=== PATIENT | female | born 1960 | race Caucasian/White ===

== ENCOUNTER 2018-04-15 10:03 | Emergency (ER) | payer BC ==
[2018-04-15] MEDS ORDERED: HYDROmorphone INJ* 2 MG/ML CARPUJECT SYRINGE IV SLOW PU ONE (10:27)
[2018-04-15] MEDS ORDERED: PROCHLORPERAZINE INJ 5 MG/ML 2 ML VIAL IV PRN (10:27)
[2018-04-15] MEDS ORDERED: NS 0.9% 1000 ML* 1,000 ML IV ONE (10:27)
[2018-04-15 11:10] LABS: ABS Basophils 0 10^3/ul (0-0.2); ABS Eosinophils 0 10^3/ul (0-0.6); ABS Lymphocytes 1.1 10^3/ul (1.0-4.8); ABS Monocytes 0.4 10^3/ul (0-0.8); ABS Neutrophils 8.4 10^3/ul (1.5-7.7); ABS Nucleated RBC 0 10^3/ul; Eosinophil % 0.3 % (0-6); Hematocrit 41 % (35-47); Hemoglobin 13.8 g/dl (12.0-16.0); Lymphocyte % 11.1 % (25-47); Mean Corpuscular HGB Conc 34 g/dl (31-36); Mean Corpuscular Hemoglobin 30 pg (27-31); Mean Corpuscular Volume 88 fL (80-97); Mean Platelet Volume 7.5 um3 (7.4-10.4); Nucleated Red Blood Cells % 0; Platelet Count 278 10^3/ul (150-450); Red Blood Count 4.68 10^6/ul (4.00-5.40); Red Cell Distribution Width 13 % (10.5-15); White Blood Count 9.9 10^3/ul (3.5-10.8)
[2018-04-15 11:29] LABS: EGFR Non-African American 60.6 (>60)
--- NOTE | 2018-04-15 11:50 | RAD ---
INDICATION: Left flank pain COMPARISON: None TECHNIQUE: Noncontrast axial source images were acquired from the level hemidiaphragms to the symphysis pubis as part of CT imaging for renal stone. Lung bases: The lung bases are clear. Liver: The liver is normal in size. Noncontrast imaging shows no evidence of a hepatic mass or ductal dilatation. Gallbladder: Cholecystectomy. Spleen: The spleen is normal in size. The noncontrast CT appearance is normal. Pancreas: Noncontrast imaging shows no pancreatic mass or ductal dilitation. Adrenal glands: No masses are identified. Kidneys/Bladder: There is an incompletely characterized 1.7 cm hypodensity in the lower pole of the left kidney perhaps with some associated tiny punctate calcification. This is likely a cyst or perhaps a trapped calyx. Suggest nonemergent ultrasound evaluation. The right kidney and ureter are otherwise normal. There is left-sided hydronephrosis and hydroureter a 3 mm UVJ calculus producing mild to moderate obstruction. There is left-sided perinephric stranding. There is additional, nonobstructing, 2 mm lower pole left renal calculus. There are no bladder calculi. Adenopathy: There is no evidence of intraperitoneal or retroperitoneal adenopathy. Evaluation is limited without oral contrast. Fluid collections: There are no free or localized fluid collections. Vessels: The aorta and iliac vessels are normal in caliber. There are no significant atherosclerotic changes. The IVC appears normal Pelvic organs: The uterus appears normal. There is no evidence of adnexal mass GI tract: Evaluation of the bowel is limited without oral contrast. The stomach, small bowel, and lower GI tract appear grossly normal. There are no obstructive findings. The appendix is visualized and appears normal. Soft tissues: No soft tissue abnormalities of the extraperitoneal abdomen or pelvis are identified. Osseous structures: There are no acute osseous findings. IMPRESSION: 1. 3 mm left UVJ calculus with mild to moderate obstructive findings. There is at least one, additional, tiny nonobstructive calculi on the left and there may be a tiny calculus on the right. 2. Incompletely characterized right renal cyst or trapped calyx and possible calcification. Suggest nonemergent follow-up ultrasonography.
[2018-04-15 12:13] LABS: Urine Appearance Clear; Urine Blood Negative (Negative); Urine Color Yellow; Urine Ketones 1+ (Negative); Urine Protein Negative (Negative); Urine Specific Gravity 1.014 (1.010-1.030); Urine Urobilinogen Negative (Negative)
[2018-04-15 14:12] VITALS: BP 170/92
--- NOTE | 2018-04-15 14:35 | ED ---
Luis Fernando Abebe Angela, scribed for Mick Mcclain MD on 04/15/18 at 1024 . Abdominal Pain/Female - HPI Summary HPI Summary: This pt is a 57 y/o female presenting to [facility] c/o left lower abdominal pain since this morning. Pt reports that for the past few days she has not fell well and has had diarrhea. Today pt states she began to have abdominal pain, described as non radiating. Her abd pain is aggravated with palpation. Pt additionally reports nausea and 2 episodes of emesis, described as bile and yellow. She did urinate this morning without any problems. Pt also had a bowel movement this morning, described as normal. Denies urinary symptoms, back pain, fever. NKDA. - History of Current Complaint Chief Complaint: EDAbdPain Stated Complaint: ABD PAIN,N/V Time Seen by Provider: 04/15/18 10:16 Hx Obtained From: Patient Onset/Duration: Lasting Hours, Still Present Timing: Hours Severity Currently: Severe Pain Intensity: 8 Pain Scale Used: 0-10 Numeric Location: Discrete At: LLQ Radiates: No Aggravating Factor(s): Other: - palpation Alleviating Factor(s): Nothing Associated Signs and Symptoms: Positive: Nausea, Vomiting, Diarrhea. Negative: Fever, Back Pain, Urinary Symptoms Allergies/Adverse Reactions: Allergies Allergy/AdvReac Type Severity Reaction Status Date / Time No Known Allergies Allergy Verified 04/15/18 10:13 Home Medications: Home Medications Montelukast Sodium TAB* [Singulair TAB*] 10 mg PO QPM 04/15/18 [History Confirmed 04/15/18] Rosuvastatin (NF) [Crestor (NF)] 10 mg PO QPM 04/15/18 [History Confirmed ] PMH/Surg Hx/FS Hx/Imm Hx Endocrine/Hematology History: Denies: Hx Diabetes Cardiovascular History: Denies: Hx Hypertension Infectious Disease History: No Infectious Disease History: Denies: Traveled Outside the [place] in Last 30 Days - Family History Known Family History: Positive: Hypertension - Father Family History: Father: prostate CA. Mother: breast CA - Social History Alcohol Use: None Substance Use Type: Reports: None Smoking Status (MU): Never Smoked Tobacco Review of Systems Negative: Fever, Chills Eyes: Negative ENT: Negative Cardiovascular: Negative Positive: Abdominal Pain, Vomiting, Diarrhea, Nausea Genitourinary: Negative Positive: no symptoms reported Negative: Other - back pain All Other Systems Reviewed And Are Negative: Yes Physical Exam - Summary Physical Exam Summary: Appearance: The patient is well-nourished in moderate acute distress. Skin: The skin is warm and skin color reflects adequate perfusion. Pt is diaphoretic. HEENT: The head is normocephalic and atraumatic. The pupils are equal and reactive. The conjunctivae are clear and without drainage. Nares are patent and without drainage. Mouth reveals moist mucous membranes and the throat is without erythema and exudate. The external ears are intact. The ear canals are patent and without drainage. The tympanic membranes are intact. Neck: the neck is supple with full range of motion and non-tender. There are no carotid bruits. There is no neck vein distension. Respiratory: Chest is non-tender. Lungs are clear to auscultation and breath sounds are symmetrical and equal. Cardiovascular: Heart is regular rate and rhythm. There is no murmur or rub auscultated. There is no peripheral edema and pulses are symmetrical and equal. Abdomen: The abdomen is soft. Pt is tender in the left lower quadrant. There are normal bowel sounds heard in all four quadrants and there is no organomegaly palpated. Musculoskeletal: There is no back tenderness noted. Extremities are non-tender with full range of motion. There is good capillary refill. There is no peripheral edema or calf tenderness elicited. Neurological: Patient is alert and oriented to person, place and time. Psychiatric: The patient has an appropriate affect and does not exhibit any anxiety or depression. Triage Information Reviewed: Yes Vital Signs On Initial Exam: Initial Vitals Temp Pulse Resp BP Pulse Ox 97.5 F 66 24 00/00 100 04/15/18 10:06 04/15/18 10:06 04/15/18 10:06 04/15/18 10:06 04/15/18 10:06 Vital Signs Reviewed: Yes Diagnostics - Vital Signs Vital Signs Temp Pulse Resp BP Pulse Ox 04/15/18 10:17 67 25 169/90 100 04/15/18 10:06 97.5 F 66 24 00/00 100 - Laboratory Lab Results: Lab Results 04/15/18 04/15/18 04/15/18 Range/Units 10:53 10:53 10:53 WBC 9.9 (3.5-10.8) 10^3/ul RBC 4.68 (4.00-5.40) 10^6/ul Hgb 13.8 (12.0-16.0) g/dl Hct 41 (35-47) % MCV 88 (80-97) fL MCH 30 (27-31) pg MCHC 34 (31-36) g/dl RDW 13 (10.5-15) % Plt Count 278 (150-450) 10^3/ul MPV 7.5 (7.4-10.4) um3 Neut % (Auto) 84.4 H (38-83) % Lymph % (Auto) 11.1 L (25-47) % Frederick % (Auto) 3.7 (0-7) % Eos % (Auto) 0.3 (0-6) % Baso % (Auto) 0.5 (0-2) % Absolute Neuts (auto) 8.4 H (1.5-7.7) 10^3/ul Absolute Lymphs (auto) 1.1 (1.0-4.8) 10^3/ul Absolute Monos (auto) 0.4 (0-0.8) 10^3/ul Absolute Eos (auto) 0 (0-0.6) 10^3/ul Absolute Basos (auto) 0 (0-0.2) 10^3/ul Absolute Nucleated RBC 0 10^3/ul Nucleated RBC % 0 Sodium 139 (135-145) mmol/L Potassium 3.4 L (3.5-5.0) mmol/L Chloride 106 (101-111) mmol/L Carbon Dioxide 20 L (22-32) mmol/L Anion Gap 13 H (2-11) mmol/L BUN 14 (6-24) mg/dL Creatinine 0.95 (0.51-0.95) mg/dL Est GFR ( Amer) 73.4 (>60) Est GFR (Non-Af Amer) 60.6 (>60) BUN/Creatinine Ratio 14.7 (8-20) Glucose 136 H (70-100) mg/dL Lactic Acid 2.3 H* (0.5-2.0) mmol/L Calcium 9.2 (8.6-10.3) mg/dL Total Bilirubin 0.60 (0.2-1.0) mg/dL AST 17 (13-39) U/L ALT 21 (7-52) U/L Alkaline Phosphatase 111 H (34-104) U/L C-Reactive Protein 4.21 (<8.01) mg/L Total Protein 7.3 (6.4-8.9) g/dL Albumin 4.1 (3.2-5.2) g/dL Globulin 3.2 (2-4) g/dL Albumin/Globulin Ratio 1.3 (1-3) Lipase 79 (11.0-82.0) U/L Urine Color Urine Appearance Urine pH (5-9) Ur Specific Blanding (1.010-1.030) Urine Protein (Negative) Urine Ketones (Negative) Urine Blood (Negative) Urine Nitrate (Negative) Urine Bilirubin (Negative) Urine Urobilinogen (Negative) Ur Leukocyte Esterase (Negative) Urine Glucose (Negative) 04/15/18 Range/Units 11:59 WBC (3.5-10.8) 10^3/ul RBC (4.00-5.40) 10^6/ul Hgb (12.0-16.0) g/dl Hct (35-47) % MCV (80-97) fL MCH (27-31) pg MCHC (31-36) g/dl RDW (10.5-15) % Plt Count (150-450) 10^3/ul MPV (7.4-10.4) um3 Neut % (Auto) (38-83) % Lymph % (Auto) (25-47) % Frederick % (Auto) (0-7) % Eos % (Auto) (0-6) % Baso % (Auto) (0-2) % Absolute Neuts (auto) (1.5-7.7) 10^3/ul Absolute Lymphs (auto) (1.0-4.8) 10^3/ul Absolute Monos (auto) (0-0.8) 10^3/ul Absolute Eos (auto) (0-0.6) 10^3/ul Absolute Basos (auto) (0-0.2) 10^3/ul Absolute Nucleated RBC 10^3/ul Nucleated RBC % Sodium (135-145) mmol/L Potassium (3.5-5.0) mmol/L Chloride (101-111) mmol/L Carbon Dioxide (22-32) mmol/L Anion Gap (2-11) mmol/L BUN (6-24) mg/dL Creatinine (0.51-0.95) mg/dL Est GFR ( Amer) (>60) Est GFR (Non-Af Amer) (>60) BUN/Creatinine Ratio (8-20) Glucose (70-100) mg/dL Lactic Acid (0.5-2.0) mmol/L Calcium (8.6-10.3) mg/dL Total Bilirubin (0.2-1.0) mg/dL AST (13-39) U/L ALT (7-52) U/L Alkaline Phosphatase (34-104) U/L C-Reactive Protein (<8.01) mg/L Total Protein (6.4-8.9) g/dL Albumin (3.2-5.2) g/dL Globulin (2-4) g/dL Albumin/Globulin Ratio (1-3) Lipase (11.0-82.0) U/L Urine Color Yellow Urine Appearance Clear Urine pH 7.0 (5-9) Ur Specific Blanding 1.014 (1.010-1.030) Urine Protein Negative (Negative) Urine Ketones 1+ A (Negative) Urine Blood Negative (Negative) Urine Nitrate Negative (Negative) Urine Bilirubin Negative (Negative) Urine Urobilinogen Negative (Negative) Ur Leukocyte Esterase Negative (Negative) Urine Glucose Negative (Negative) Result Diagrams: 04/15/18 10:53 04/15/18 10:53 Lab Statement: Any lab studies that have been ordered have been reviewed, and results considered in the medical decision making process. - CT Abdomen/Pelvis CT CT Interpretation: Positive (See Comments) - IMPRESSION: 1. 3 mm left UVJ calculus with mild to moderate obstructive findings. There is at least one, additional, tiny nonobstructive calculi on the left and there may be a tiny calculus on the right. 2. Incompletely characterized right renal cyst or trapped calyx and possible calcification. Suggest nonemergent follow-up ultrasonography. Dr. Mcclain has reviewed this radiology report. CT Interpretation Completed By: Radiologist - EKG 10:06 Cardiac Rate: NL - at 61 bpm EKG Rhythm: Sinus Rhythm Abdominal Pain Fem Course/Dx - Course Course Of Treatment: Ms. Mcintyre presented primarily complaining of left lower quadrant pain that came on fairly suddenly this morning. She has had some mild discomfort to mornings in a row but nothing on this scale. She was tender in the left lower quadrant and her vitals were normal. She was given pain medication and nausea medication and IV fluids while labs were obtained and a noncontrasted CT. After the medication she felt transiently dizzy but this resolved. CT revealed a 3 mm left UVJ stone with some hydronephrosis. She was kept on the monitor while she was here and noted to have some dropped beats. Most of the time this looks like a Wenkebachs but occasionally it looks more like a Mobitz II. She is asymptomatic with it. I reviewed the strips and EKG with Dr. Del Rosario and he believes that it is a Wenkebach. We will have her follow up with cardiology as she is stable. And I will treat her for her kidney stone. She was improved at discharge and stable - Diagnoses Provider Diagnoses: Kidney stone, Wenckebach Discharge - Sign-Out/Discharge Documenting (check all that apply): Discharge/Admit/Transfer - Discharge - Discharge Plan Condition: Stable Disposition: HOME Prescriptions: HYDROcodone/ACETAMIN 5-325 MG* [Lafayette 5-325 TAB*] 1 tab PO Q6H PRN #20 tab MDD 4 PRN Reason: Pain Tamsulosin CAP* [Flomax CAP*] 0.4 mg PO DAILY #7 cap Patient Education Materials: Kidney Stones (ED), Heart Block (ED) Referrals: Josue Shaikh MD [Primary Care Provider] - Additional Instructions: Recommend ibuprofen for the pain. Please follow up with your primary care provider in 2-3 days. RETURN TO THE ED FOR ANY WORSENING SYMPTOMS. - Billing Disposition and Condition Condition: STABLE Disposition: Home The documentation as recorded by the Luis Fernando harrison Angela accurately reflects the service I personally performed and the decisions made by me, Mick Mcclain MD.
== END 2018-04-15 14:09 | disposition home or self-care (01) ==
LOC: ED 10:03
DX: N13.2 Hydronephrosis with renal and ureteral calculous obstruction (principal); I44.1 Atrioventricular block, second degree
CPT/HCPCS: 36415; 74176; 80053; 81003; 83605; 83690; 85025; 86140; 87476; 87798; 93005; 96361; 96374; 96375; 99283; J0780; J1170

== ENCOUNTER 2018-07-01 06:04 | Day surgery (SDC) | payer BC ==
[~2018-07-01 06:04] MED LIST: Acetaminophen TAB* 325 MG PO ONE; Buffered Lidocaine 0.9% SYRIN* 5 ML/SYR SYRINGE INTRADERM ONE
[2018-07-01] MEDS ORDERED: Acetaminophen TAB* 325 MG ONE (06:09)
[2018-07-01] MEDS ORDERED: fentaNYL* 50 MCG/ML 2 ML VIAL (100 MCG VIAL) ONE (07:12)
[2018-07-01] MEDS ORDERED: Midazolam* 1 MG/ML 2 ML VIAL (2 MG) ONE (07:17)
[2018-07-01] MEDS ORDERED: Ondansetron INJ* 2 MG/ML VIAL ONE (08:02)
[2018-07-01] MEDS ORDERED: Dexamethasone IV* 4 MG/ML 1 ML (4 MG) ONE (08:02)
[2018-07-01] MEDS ORDERED: Propofol* 10 MG/ML 20 ML BTL IV PUSH ONE (08:02)
[2018-07-01] MEDS ORDERED: Famotidine IV* 10 MG/ML 2 ML (20 mg) ONE (08:02)
[2018-07-01] MEDS ORDERED: HYDROcodone/ACETAMIN 5-325 MG* 1 TAB PO PRN ×2 (08:17)
[2018-07-01] MEDS ORDERED: Naloxone* 0.4 MG/ML 1 ML VIAL IV PRN (08:17)
[2018-07-01] MEDS ORDERED: Nalbuphine* 10 MG/ML 1 ML VIAL IV PRN (08:17)
[2018-07-01] MEDS ORDERED: DiMENhydriNATE IV* 50 MG/ML VIAL IV PUSH PRN (08:17)
[2018-07-01] MEDS ORDERED: Ondansetron INJ* 2 MG/ML VIAL IV PRN (08:17)
[2018-07-01] MEDS ORDERED: diPHENhydraMINE IV* 50 MG/ML 1 ml VIAL (BENADRYL) IV PRN (08:17)
[2018-07-01] MEDS ORDERED: PROCHLORPERAZINE INJ 5 MG/ML 2 ML VIAL IV PRN (08:17)
[2018-07-01] MEDS ORDERED: Levalbuterol 0.63MG/3ML NEB* UNIT OF USE INH PRN (08:17)
[2018-07-01] MEDS ORDERED: fentaNYL* 50 MCG/ML 2 ML VIAL (100 MCG VIAL) IV PRN (08:17)
[2018-07-01] MEDS ORDERED: Labetalol IV* 5 MG/ML 20 ML VIAL ONE (08:27)
[2018-07-01] MEDS ORDERED: Ketorolac INJ* 30 MG/ML 1 ML VIAL ONE (08:27)
[2018-07-01 10:11] VITALS: BP 137/88
--- NOTE | 2018-07-02 03:22 | OP ---
DATE OF OPERATION: 07/01/18 - [facility] DATE OF : 60. SURGEON: Mario Pulido MD. ANESTHESIOLOGIST: Dr. Chery. ANESTHESIA: General endotracheal. PRE-OP DIAGNOSIS: Postmenopausal bleeding, thickened endometrium and likely endometrial polyp. POST-OP DIAGNOSIS: Postmenopausal bleeding and endometrial polyps. OPERATIVE PROCEDURE: Hysteroscopy, dilatation and curettage and MyoSure polypectomy x3. ESTIMATED BLOOD LOSS: Minimal. URINE OUTPUT: 200 cc. IV FLUIDS: 1000 cc of lactated Ringer's. MATERIALS TO LAB: Polyp fragments and endometrial curettings. INDICATIONS: The patient is a 57-year-old 1, para 1, who presented to the office reporting a small amount of postmenopausal bleeding. Previous to this, she has not had any bleeding for several years. Endometrial thickness on ultrasound was about 12 mm. Endometrial biopsy performed in the office returned with benign findings and evidence of endometrial polyp. Considering this, the patient was advised to have a hysteroscopy and polypectomy performed. She was extensively counseled and consent was signed. FINDINGS: Uterine cavity with at least 3 distinct polyps easily visible. The remainder of the endometrial cavity appeared normal. COMPLICATIONS: Preoperatively, the patient was noted to have significantly elevated blood pressure without any significant blood pressure history. The patient reported having some anxiety about surgery and her blood pressure did respond very well to single medication. She was observed closely during surgery and blood pressure remained normal. DESCRIPTION OF PROCEDURE: The risks, benefits, and alternatives were described to the patient and informed consent was obtained. The patient was taken to the operating room with IV running where general anesthesia was induced and found to be adequate. The patient was prepped and draped in the normal sterile fashion in the high lithotomy position in [facility]. A time-out was performed. The bladder was emptied. A bivalve speculum was placed in the vagina and a single tooth tenaculum was placed on the anterior cervix. The cervix was then gently dilated using Hegar dilators to size 6. At that time, a 6 mm MyoSure hysteroscope was advanced through the cervix and into the uterine cavity without difficulty. An [employer] fluid management system was used to manage the saline distention medium. On entry into the uterine cavity, there were three easily visible fairly large endometrial polyps present. All three of the polyps were completely removed using a MyoSure Lite device. Once this was completed, the endometrial cavity appeared to be smooth and normal. The hysteroscope was then removed. A curetting of the endometrial cavity was then performed using a medium Banjo curette and a small amount of curettings were collected on Telfa. The tenaculum was then removed from the cervix and there was good hemostasis present. The speculum was removed and the patient was returned to the supine position. The patient tolerated the procedure well. Sponge, lap, and needle counts were correct x2. [id number]/[id number] #: [id number] MTDD
== END 2018-07-01 10:14 | disposition home or self-care (01) ==
LOC: OR 06:04
PROVIDERS: ATTEND Obstetrics & Gynecology
DX: N95.0 Postmenopausal bleeding (principal); N84.0 Polyp of corpus uteri; I47.1 Supraventricular tachycardia; E78.5 Hyperlipidemia, unspecified; F41.9 Anxiety disorder, unspecified
CPT/HCPCS: 88305; A9270-GY; J1100; J1885; J2250; J2405; J2704; J3010

== ENCOUNTER 2019-01-19 09:41 | Emergency (ER) | payer BC ==
--- OUTSIDE RECORDS SUMMARY | 2019-01-19 10:10 | XMS REPORT | Continuity of Care Document ---
:1960 External Reference #:[id number] Author Name Mario Pulido MD Address [address] [place] [address] Care Team Providers Name Role Phone Josue Shaikh M.D. Primary Care Physician Unavailable Payers Date Identification Numbers Payment Provider Subscriber Expires: 2010 Policy Number: [id number] [employer] [facility] PayID: [id number] [address] [address] [place] [address] Effective: 2014 Policy Number: [id number] [employer] [facility] PayID: [id number] [address] [address] [place] [address] Advance Directives Description No Information Available Problems Description No Information Family History Date Family Member(s) Observation Comments Father due to Multiple Myeloma () Father due to Prostate Cancer () Mother Breast Cancer Dx 60s Mother Lung Cancer Mother Hypercholesterolemia First Son A&W Number of Siblings Siblings: none Order Patient is an only child Paternal Grandfather due to Diabetes () Paternal Grandmother due to Heart Disease () Maternal Grandfather due to Melanoma () Maternal Grandmother due to Old Age () Aunt Breast Cancer Maternal, Dx 60s Social History Type Date Description Comments Sex Unknown Education Highest level of education completed is 12th grade Marital Status Patient is Living Situation Lives with spouse Diet Diet is healthy and well balanced Occupation Logistics Supervisor Occupation Retired Cigarette Use Never smoked cigarettes Alcohol Denies alcohol use Tobacco Use Start: Unknown Patient has never smoked Drug Use Denies drug use Smoking Status Reviewed: 12/20/18 Patient has never smoked Daily Caffeine Does not consume caffeine Exercise Type/Frequency Exercises regularly Current Seat Belt/Car Seat Always uses a seat belt Currently Active The patient is currently sexually active STD's No STD history Allergies, Adverse Reactions, Alerts Description No Known Drug Allergies Medications Medication Date Status Form Strength Qnty SIG Indications Ordering Provider Crestor Active Tablets 10mg Dee Reyes MD Singulair Active Tablets 10mg 90tabs 1 by Dee Kellogg mouth Eric every day Nasonesusie Active Suspension 50mcg/Act 2 sprays Unknown 000 to each nostril twice daily Citracal Plus Active Tablets 1 po qd Unknown 000 Cod Liver Oil Hx Unknown 000 - 015 Medications Administered in Office Medication Date Status Form Strength Qnty SIG Indications Ordering Provider PT SCRN Tbco Administered Injection Phaelon Id as Non User 019 MD Tess PT SCRN Tbco Administered Injection Phaelon Id as Non User 018 MD Tess PT SCRN Tbco Administered Injection Phaelon Id as Non User 018 MD Tess PT SCRN Tbco Administered Injection Phaelon Id as Non User 018 MD Tess Immunizations Description No Information Available Vital Signs Date Vital Result Comment 12/20/2018 10:09am BP Systolic 146 mmHg BP Diastolic 98 mmHg Height 65 inches 5'5" Weight 214.00 lb BMI (Body Mass Index) 35.6 kg/m2 1 Parity 1 07/26/2018 9:47am BP Systolic 134 mmHg BP Diastolic 88 mmHg Height 65 inches 5'5" Weight 210.00 lb BMI (Body Mass Index) 34.9 kg/m2 1 Parity 1 06/29/2018 9:58am BP Systolic 132 mmHg BP Diastolic 84 mmHg Body Temperature 97.7 F Heart Rate 68 /min Respiratory Rate 12 /min Height 65 inches 5'5" Weight 208.00 lb BMI (Body Mass Index) 34.6 kg/m2 1 Parity 1 05/24/2018 10:18am BP Systolic 148 mmHg BP Diastolic 92 mmHg Height 65 inches 5'5" Weight 208.00 lb BMI (Body Mass Index) 34.6 kg/m2 1 Parity 1 02/25/2015 3:32pm BP Systolic 124 mmHg BP Diastolic 86 mmHg Height 65 inches 5'5" Weight 217.00 lb BMI (Body Mass Index) 36.1 kg/m2 Last Menstrual Period [id number] 1 Parity 1 02/07/2015 9:32am BP Systolic 122 mmHg BP Diastolic 70 mmHg Height 65 inches 5'5" Weight 214.00 lb BMI (Body Mass Index) 35.6 kg/m2 Last Menstrual Period [id number] approx 06/2011 1 Parity 1 05/28/2010 3:25pm BP Systolic 122 mmHg BP Diastolic 72 mmHg Height 65 inches 5'5" Weight 198.00 lb BMI (Body Mass Index) 32.9 kg/m2 Last Menstrual Period [id number] 1 Parity 1 04/14/2010 8:20am BP Systolic 138 mmHg BP Diastolic 74 mmHg Height 65 inches 5'5" Weight 195.00 lb BMI (Body Mass Index) 32.4 kg/m2 03/31/2010 8:48am BP Systolic 140 mmHg BP Diastolic 80 mmHg Body Temperature 97.5 F Heart Rate 66 /min Height 65 inches 5'5" Weight 198.00 lb BMI (Body Mass Index) 32.9 kg/m2 1 Parity 1 02/11/2010 8:19am BP Systolic 118 mmHg BP Diastolic 84 mmHg Height 65 inches 5'5" Weight 200.00 lb BMI (Body Mass Index) 33.3 kg/m2 11/08/2009 11:32am BP Systolic 140 mmHg BP Diastolic 86 mmHg Height 65 inches 5'5" Weight 200.00 lb BMI (Body Mass Index) 33.3 kg/m2 08/26/2009 12:50pm BP Systolic 128 mmHg BP Diastolic 84 mmHg Height 65 inches 5'5" Weight 198.00 lb BMI (Body Mass Index) 32.9 kg/m2 Last Menstrual Period [id number] 1 Parity 1 Results Test Date Facility Test Result H/L Range Note Laboratory test 07/01/2018 [facility] Surgical SEE RESULT 1 [place] [address] Pathology BELOW [phone] CBC Auto Diff 06/29/2018 [facility] White Blood 8.3 10^3/uL N 3.5-10.8 [place] [address] Count [phone] Red Blood Count 4.86 10^6/uL N 4.00-5.40 Hemoglobin 14.4 g/dL N 12.0-16.0 Hematocrit 43 % N 35-47 Mean Corpuscular Volume 88 fL N 80-97 Mean Corpuscular Hemoglobin 30 pg N 27-31 Mean Corpuscular HGB Conc 34 g/dL N 31-36 Red Cell Distribution Width 13 % N 10.5-15 Platelet Count 315 10^3/uL N 150-450 Mean Platelet Volume 8.1 um3 N 7.4-10.4 Abs Neutrophils 5.0 10^3/uL N 1.5-7.7 Abs Lymphocytes 2.5 10^3/uL N 1.0-4.8 Abs Monocytes 0.5 10^3/uL N 0-0.8 Abs Eosinophils 0.2 10^3/uL N 0-0.6 Abs Basophils 0.1 10^3/uL N 0-0.2 Abs Nucleated RBC 0 10^3/uL Granulocyte % 60.1 % N 38-83 Lymphocyte % 30.5 % N 25-47 Monocyte % 6.2 % N 0-7 Eosinophil % 2.3 % N 0-6 Basophil % 0.9 % N 0-2 Nucleated Red Blood Cells % 0.3 Laboratory test 05/24/2018 [facility] Cytology SEE RESULT 2 [place] [address] BELOW [phone] Laboratory test 02/25/2015 [facility] Surgical SEE RESULT 3 [place] [address] Interface Order BELOW [phone] Laboratory test 02/07/2015 [facility] Cytology RUN DATE: 4 [place] [address] 02/08/ <SEE [phone] NOTE> Human Papilloma Virus Rna Negative N Negative 5 Surgical 04/07/2010 [facility] Surgical 6 [place] [address] Pathology <SEE NOTE> [phone] CBC With 03/31/2010 [facility] White Blood 8.1 CUMM 4.8- 7 [place] [address] Count 10.8 [phone] Red Cell Count 4.39 CUMM 4.2-5.4 Hemoglobin 13.3 g/dL 12.0-16.0 Hematocrit 38 % 35-47 Mean Corpuscular Volume 87 um3 79-97 Mean Corpuscular Hemoglob 30 pg 27-31 Mean Corpuscular HGB Cone 35 g/dL 32-36 Redcell Distribution WDTH 13 % 10.5-15 Platelet Count 317 CUMM 150-450 Mean Platelet Volume 7.4 um3 7.4-10.4 Gran % 68.7 % 38-83 Lymph % 22.8 % Low 25-47 Mononuclear % 6.6 % 1-9 Eosinophil % 1.3 % 0-6 Basophil % 0.6 % 0-2 Abs Lymphs 1.8 1.0-4.8 Abs Mononuclear 0.5 0-0.8 Absolute Neutrophil Count 5.6 1.5-7.7 Abs Eosinophils 0.1 0-0.6 Abs Basophils 0 0-0.2 (HCG) 03/31/2010 [facility] Specific 1.028 1.010- 1.030 [place] [address] [place] [phone] Urine NEGATIVE Negative 8 Type And Screen 03/31/2010 [facility] Patient Blood [place] [address] [phone] Antibody Screen NEGATIVE Specimen Discard Date 04/14/10 9 Laboratory test 02/11/2010 [facility] 125 6.2 U/ML <21 10 finding CBC With Manual Diff 08/26/2009 [facility] White Blood 10.5 CUMM 4.8-10.8 [place] [address] Count [phone] Red Cell Count 4.09 CUMM Low 4.2-5.4 Hemoglobin 12.4 g/dL 12.0-16.0 Hematocrit 37 % 35-47 Mean Corpuscular Volume 91 um3 79-97 Mean Corpuscular Hemoglob 30 pg 27-31 Mean Corpuscular HGB Cone 33 g/dL 32-36 Redcell Distribution WDTH 14 % 10.5-15 Platelet Count 326 CUMM 150-450 Mean Platelet Volume 7.6 um3 7.4-10.4 Polysegmented Neutrophil 72 % 38-83 Band Neutrophil 3 % 0-8 Lymphocyte 22 % Low 25-47 Monocyte 3 % 0-13 Absolute Neutrophil Count 7.8 Anisocytosis SLIGHT Gamaliel Cells 1+ Thyroid 08/26/2009 [facility] Thyroglobulin AB <1.8 <4.0 11 [place] [address] Screen IU/mL [phone] Thyroperoxidase AB 24.7 IU/mL Abnormal <9.0 Laboratory test finding 08/26/2009 [facility] FSH 6.98 MIU/ML 12 [place] [address] [phone] Lutenizing Hormone 3.74 MIU/ML 13 TSH 2.63 MIU/ML 0.34-5.60 Thyroxine Free 0.73 NG/ML 0.61-1.24 14 1 SEE RESULT BELOW Name: CORAL MCINTYRE : [address]: Mario Pulido MD Acct: [id number] Unit: [id number] AGE: 57 Location: OR Re07/01/18 SEX: F Status: [facility] [place]C: [id number] ANDRES: 07/01/18- SUBM DR: Mario Pulido MD REQ: [id number] RECD: 07/01/18 STATUS: SOUT _ ORDERED: LEVEL 4 FINAL DIAGNOSIS Uterus, endometrium, curettage: -- Fragments of benign endometrial polyp(s). -- Fragments of cellular smooth muscle suggestive of submucosal leiomyoma. -- Proliferative endometrium. -- No evidence of hyperplasia or neoplasia identified. PRE-OPERATIVE DIAGNOSIS Postmenopausal bleeding GROSS DESCRIPTION The specimen is received in formalin labeled, Polypectomy and Endometrial Curettings, and consists of a 2.5 x 2.5 x 0.5 cm aggregate of white-pink rubbery tissue fragments, which are entirely submitted in cassette A.. Received separately in the same container is a 1.5 x 1.0 x 0.2 cm aggregate of translucent yellow mucus admixed with lyon-white irregular soft tissue fragments and red-brown blood clot, which is filtered and entirely submitted in cassette B. Signed by and Reported on: Jose Cotton MD 1615 END OF REPORT DEPARTMENT OF PATHOLOGY, [address] [place] [address] Jose Cotton M.D. Director [facility] # [id number] 2 SEE RESULT BELOW Name: CORAL MCINTYRE : [address]: Mario Pulido MD Acct: [id number] Unit: [id number] AGE: 57 Location: [facility] Re05/24/18 SEX: F Status: REG REF SPEC: [id number] ANDRES: 05/24/18-[address]: Mario Pulido MD REQ: [id number] RECD: 05/24/18 STATUS: SHAREE CAI DR: Josue Shaikh MD _ ORDERED: TP IMAGE ANALYS, HPV/Thin Prep COMMENTS: [id number] Negative for Intraepithelial lesion or Malignancy Date Time Test Result Flag (u) Normal Range 05/24/18 1101 @ HPV RNA Negative Negative @ @ The high-risk HPV types detected by the assay include: 16, @ 18, 31, 33, 35, 39, 45, 51, 52, 56, 58, 59, 66, and 68. A. Ectocervical/Endocervical Specimen Adequacy: Satisfactory of evaluation Transformation zone component identified Patient Information: HPV: High risk HPV RNA testing regardless of pap results. Actual Specimen Date: 05/24/18 LMP If Unknown: 2010 Date of Last Specimen: 02/07/15 Post Menopausal?: Y Signed by and Reported on: Arnie WAYNE Silverio (ASCP) 1356 This Pap test was evaluated with the assistance of the SupportSpacep Test Imaging System. Due to cytologic findings at the kerrick kleaner operator microscope, comprehensive manual rescreening by a Gas Fitter Helper may be required. The Pap Smear is a screening test designed to aid in the detection of premalignant and malignant conditions of the uterine cervix. It is not a diagnostic procedure and should not be used as the sole means of detecting cervical cancer. Both false- positive and false- negative reports do occur. Depending on your risk status, a Pap smear should be obtained and evaluated every 1-3 years. END OF REPORT DEPARTMENT OF PATHOLOGY, [address] [place] [address] Jose Cotton M.D. Director [facility] # [id number] 3 SEE RESULT BELOW Name: CORAL MCINTYRE : [address]: Dee Reyes MD Acct: [id number] Unit: [id number] AGE: 54 Location: [facility] Re02/25/15 SEX: F Status: REG REF SPEC: [id number] ANDRES: 02/25/15-[address] [facility] [address]: Dee Reyes MD REQ: [id number] RECD: 02/26/15 STATUS: SOUT _ ORDERED: LEVEL IV FINAL DIAGNOSIS Uterus, endometrium, biopsy: -- Benign endometrial polyp. -- Fragments of atrophic and weakly proliferative endometrial mucosa. -- No evidence of hyperplasia or neoplasia. PRE-OPERATIVE DIAGNOSIS Post-menopausal bleeding. GROSS DESCRIPTION The specimen is received in formalin with no source identified and a requisition labeled, Endometrial Biopsy, and consists of a 1.1 x 0.9 x 0.3 cm aggregate of lyon irregular soft tissue fragments and blood-tinged mucus. The specimen is filtered and submitted entirely in one cassette. Signed (signature on file) Silvia Hsu MD 1126 END OF REPORT * ML=Testing performed at Main Lab DEPARTMENT OF PATHOLOGY, [facility] [employer] [place], [place] [address] Jose Cotton M.D. Director [facility] # [id number] 4 RUN DATE: 02/08/15 [facility] LAB LIVE PAGE 1 RUN TIME: 9367 [facility] [place], [place] [address] Specimen Inquiry Name: CORAL MCINTYRE : [address]: Dee Reyes MD Acct: [id number] Unit: [id number] AGE: 54 Location: [facility] Re02/07/15 SEX: F Status: REG REF SPEC: [id number] ANDRES: 02/07/15-[address]: Dee Reyes MD REQ: [id number] RECD: 02/07/15 STATUS: SOUT _ ORDERED: IMAGE ANALYSIS, HPV/Thin Prep FINAL DIAGNOSIS Negative for Intraepithelial lesion or Malignancy A. Ectocervical/Endocervical Specimen Adequacy: Satisfactory of evaluation Transformation zone component identified Patient Information: HPV: High risk HPV RNA testing regardless of pap results. Actual Specimen Date: 02/07/15 LMP If Unknown: 06/2011 Spec Date if unknown: 2011 Post Menopausal?: Y Date Time Test Result Flag (u) Normal Range 02/07/15 1001 HPV RNA Negative Negative The high-risk HPV types detected by the assay include: 16, 18, 31, 33, 35, 39, 45, 51, 52, 56, 58, 59, 66, and 68. Signed (signature on file) WAYNE Etienne (ASCP) 02/08 1252 This Pap test was evaluated with the assistance of the Delivery HeroPrep Test Imaging System. Due to cytologic findings at the kerrick kleaner operator microscope, comprehensive manual rescreening by a Gas Fitter Helper may be required. The Pap Smear is a screening test designed to aid in the detection of premalignant and malignant conditions of the uterine cervix. It is not a diagnostic procedure and should not be used as the sole means of detecting cervical cancer. Both false- positive and false- negative reports do occur. Depending on your risk status, a Pap smear should be obtained and evaluated every 1-3 years. END OF REPORT * ML=Testing performed at Main Lab DEPARTMENT OF PATHOLOGY, [address] [place] [address] Jose Cotton M.D. Director [facility] # [id number] 5 The high-risk HPV types detected by the assay include: 16, 18, 31, 33, 35, 39, 45, 51, 52, 56, 58, 59, 66, and 68. 6 --- RUN DATE: 04/09/10 [facility] NMI LIVE PAGE 1 RUN TIME: 1445 Specimen Inquiry RUN USER: INTERFACE -- Name: CORAL MCINTYRE [facility]#: [id number] Status: [facility] Re04/07/10 Age/Sex: 49/F Unit#: [id number] Location: [facility]. : 60 -- Specimen: [id number] [facility] Spec Date: 04/07/[address]: Dee silver MD Spec Type: SURGICAL P Received: 04/08/10-1135 Copies to: CYTOLOGY SPECIMEN LEFT TUBE AND OVARY HISTORY POST-OP DIAGNOSIS: Left ovarian cyst GROSS DESCRIPTION The specimen is received in formalin labelled Coral GamboaJagdeep Mcintyre, Left Tube and Ovary, and consists of multiple fragments including a cystic ovary measuring 4.0 x 3.0 x 1.5 cm. There is a separate simple intact serous cyst measuring 2.8 x 2.8 x 2.5 cm. There is an identifiable fallopian tube measuring 5.0 x 1.0 x 0.7 cm. and multiple, irregular, lyon, soft tissue fragments measuring 4.5 x 3.0 x 1.0 cm. in aggregate. The ovarian cyst demonstrates a central papillary exophytic mass measuring 1.2 x 0.9 cm. by up to 0.5 cm. The remaining capsule measures between 0.2 cm. and 0.1 cm. and demonstrates no additional exophytic lesions. The external surface demonstrates no surface projections. Planning Technician sections including the entirety of both cysts and customer sales representative sections of the additional fragments are submitted in A through G. DIAGNOSIS Left ovary and fallopian tube, salpingo-oophorectomy: A. 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 greatest dimension, see comment). B. Benign thecal cyst (2.8 cm. greatest dimension). C. Benign ovarian tissue. D. Fallopian tube with no significant pathologic abnormality. COMMENT The cystic ovarian mass demonstrates a simple cystic cavity with a nidus demonstrating a predominantly connective tissue proliferation forming polypoid projections into the lumen of the cyst and lined by a simple benign serous epithelium with cilia. These findings are characteristic of benign cystadenofibroma, a relatively uncommon form of benign cystic proliferation which can occur both in the ovary and endometrial cavity. There is no evidence of malignancy identified. -- DEPARTMENT OF PATHOLOGY, [address] [place] [address] [facility] Permit #[id number] Jose Cotton M.D. Director Alejandra Gonzalez M.D. Soft Metals Hand Engraver Dir holt -- -- RUN DATE: 04/09/10 [facility] NMI LIVE PAGE 2 RUN TIME: 1445 Specimen Inquiry RUN USER: INTERFACE -- Name: RYLEE MCINTYREPeewee Gamboa Status: [facility] Re04/07/10 Age/Sex: 49/F Unit#: [id number] Location: [facility]EL : 60 -- -- CONTINUED -- Signed Electronically by: JOSE COTTON MD 04/09/10 1443 -- -- DEPARTMENT OF PATHOLOGY, [address] [place] [address] [facility] Permit #[id number] Jose Cotton M.D. Director Alejandra Gonzalez M.D. Soft Metals Hand Engraver Dir jonathon -- 7 [facility] 04/07/10 8 If is still suspected, please repeat test after 48 to 72 hours. . 9 PREADMISSION TESTING SAMPLES FOR BLOOD BANK WILL BE HELD FOR 14 DAYS FROM THE DATE OF COLLECTION *IF* THE FOLLOWING CRITERIA ARE MET: 1) THE PATIENT HAS *NOT* BEEN IN THE LAST 3 MONTHS. 2) THE PATIENT HAS *NOT* BEEN TRANSFUSED IN THE LAST 3 MONTHS. PREADMISSION TESTING SAMPLES WILL *NOT* BE HELD FOR 14 DAYS FROM PATIENTS WHO IN THE LAST 3 MONTHS: 1) HAVE BEEN 2) HAVE BEEN TRANSFUSED THESE PATIENTS *MUST* BE COLLECTED WITHIN 3 DAYS OF THE SURGERY DATE. 10 THIS TEST WAS PERFORMED USING THE SIEMENS (Alereon) CHEMILUMINESCENT METHOD. VALUES OBTAINED FROM DIFFERENT ASSAY METHODS CANNOT BE USED INTERCHANGEABLY. CA 125 LEVELS, REGARDLESS OF VALUE, SHOULD NOT BE INTERPRETED ABSOLUTE EVIDENCE OF THE PRESENCE OR ABSENCE OF DISEASE. 11 Test Performed by: [facility] Dpt of Lab Med and Pathology [address] [place] [address] Supervisory Clerk: Rajat Mccray III, M.D. 12 NORMAL RANGE MALES 1 - 20 NORMALLY MENSTRUATING FEMALES - Follicular Phase 3 - 9 - Mid-Cycle Peak 4 - 23 - Luteal Phase 1 - 6 POSTMENOPAUSAL FEMALES 16 - 114 . 13 NORMAL RANGE MALES 2 - 12 NORMALLY MENSTRUATING FEMALES - Follicular Phase 1 - 18 - Mid-Cycle Peak 24 - 105 - Luteal Phase 0.6 - 20 POSTMENOPAUSAL FEMALES 15 - 62 . 14 PLEASE NOTE NEW REFERENCE RANGES. Procedures Date Code Description Status 07/01/2018 25209 Hysteroscopy,D&C Completed 05/24/2018 36073 Echography Transvaginal Completed 04/17/2018 63205952 Mammogram Completed 04/17/2018 067275703 Bone Mineral Density Test Completed 02/25/2015 91944 Echography Transvaginal Completed 02/25/2015 84076 Biopsy Endometrial W/O Cervical Dilation Completed 05/18/2012 80332683 Colonoscopy Completed 04/07/2010 82498 Salpingo-Oophorectomy Completed 04/07/2010 36975 Salpingo-Oophorectomy Completed 02/11/2010 92971 Echography Transvaginal Completed 11/08/2009 95695 Echography Transvaginal Completed Encounters Type Date Location Provider Dx Diagnosis Office Visit 12/20/2018 Kenton Pulido MD N95.0 Postmenopausal 10:15a bleeding Office Visit 07/26/2018 Kenton Pulido MD Z48.816 Encounter for surgical 9:45a aftcr following surgery on the sys 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 Office Visit 06/29/2018 10:00a [facility] Mario Pulido Z01.818 Encounter for other MD preprocedural examination N95.0 Postmenopausal bleeding Office Visit 05/24/2018 10:00a [facility] Mario Pulido N95.0 Postmenopausal MD bleeding Z12.4 Encounter for screening for malignant neoplasm of cervix Office Visit 02/07/2015 9:30a [facility] Dee Reyes V76.2 Screening Malignant Neoplasm Cervix V72.31 Routine Pediatrician Active Practice Examination 627.1 Postmenopausal Bleeding Office Visit 03/31/2010 9:00a [facility] Dee Reyes, 620.2 Ovarian Cyst Suite Q Other & Unspec V72.83 Examination Preoperative Other Spec Office Visit 11/08/2009 11:20a [facility] Dee Reyes, 620.2 Ovarian Cyst Other & Unspec 626.2 Menstruation Excessive Or Frequent Office Visit 08/26/2009 1:00p [facility] Larissa Avina 620.2 Ovarian Cyst Stepan Other & Unspec 626.2 Menstruation Excessive Or Frequent Plan of Treatment Future Appointment(s):01/24/2019 3:30 pm - Mario Pulido MD at [facility] Sucyyh2706/2019 3:00 pm - Ultrasounds at [facility]02/25/2015 - Dee Reyes MD627.1 Postmenopausal Bleeding
[2019-01-19 10:16] VITALS: BP 150/92
--- NOTE | 2019-01-19 10:36 | UC ---
Back Pain HPI - History of Current Complaint Chief Complaint: UCBackPain Stated Complaint: LOWER BACK PAIN Time Seen by Provider: 01/19/19 10:17 Hx Obtained From: Patient ?: No Onset/Duration: Sudden Onset, Lasting Days Timing: Constant Severity Initially: Moderate Severity Currently: Moderate Pain Intensity: 6 Character: Dull, Aching, Throbbing Aggravating Factor(s): Movement Alleviating Factor(s): Position Associated Signs And Symptoms: Positive: Negative - Allergies/Home Medications Allergies/Adverse Reactions: Allergies Allergy/AdvReac Type Severity Reaction Status Date / Time No Known Allergies Allergy Verified 07/01/18 06:24 PMH/Surg Hx/FS Hx/Imm Hx Previously Healthy: Yes - Surgical History Surgical History: Yes Surgery Procedure, Year, and Place: cholecystectomy,2003. heart ablation, 2002. left fallopian and ovary removed, 2009. D&C 09/2018 - Family History Known Family History: Positive: Hypertension - Father Family History: Father: prostate [place]. Mother: breast [place] - Social History Alcohol Use: None Substance Use Type: None Smoking Status (MU): Never Smoked Tobacco Review of Systems All Other Systems Reviewed And Are Negative: Yes Constitutional: Positive: Negative Skin: Positive: Negative Eyes: Positive: Negative ENT: Positive: Negative Respiratory: Positive: Negative Cardiovascular: Positive: Negative Gastrointestinal: Positive: Negative Genitourinary: Positive: Negative Motor: Positive: Negative Musculoskeletal: Positive: Negative, Decreased ROM, Myalgia Neurological: Positive: Negative Psychological: Positive: Negative Is Patient Immunocompromised?: No Physical Exam Triage Information Reviewed: Yes Appearance: Well-Appearing, Well-Nourished, Pain Distress Vital Signs: Initial Vital Signs Temp 98.3 F 01/19/19 10:11 Pulse 73 01/19/19 10:11 Resp 17 01/19/19 10:11 BP 150/92 01/19/19 10:11 Pulse Ox 100 01/19/19 10:11 Vital Signs Reviewed: Yes Eye Exam: Normal ENT Exam: Normal Dental Exam: Normal Neck exam: Normal Respiratory Exam: Normal Respiratory: Positive: Chest non-tender, Lungs clear, Normal breath sounds Cardiovascular Exam: Normal Cardiovascular: Positive: RRR, No Murmur, Pulses Normal Abdominal Exam: Normal Abdomen Description: Positive: Nontender, No Organomegaly, Soft, CVA Tenderness (R) - nrg, CVA Tenderness (L) - nrg Bowel Sounds: Positive: Present Musculoskeletal: Positive: Strength Intact, ROM Intact, No Edema, Other: - spams of right paraspinal muscles and lower back muscles Neurological Exam: Normal Psychological Exam: Normal Back Pain Course/Dx - Course Course Of Treatment: hx obtained, exam performed ,meds reviewed, abdominal exam was negative, but muscle pain and spams noted, educated on heat and stretching for muscles involved. - Differential Dx/Diagnosis Differential Diagnosis/HQI/PQRI: Herniated Disc, Strain, Sprain Provider Diagnosis: Muscle spasm of back Discharge - Sign-Out/Discharge Documenting (check all that apply): Patient Departure All imaging exams completed and their final reports reviewed: No Studies - Discharge Plan Condition: Stable Disposition: HOME Patient Education Materials: Muscle Spasm (ED) Referrals: Josue Shaikh MD [Primary Care Provider] - Additional Instructions: 1. heat 2. stretch 3. use iburprofen for pain 4. heat and stretch again. try to do it 4x a day 5. You would benefit from a massage 6. Follow up as needed. - Billing Disposition and Condition Condition: STABLE Disposition: Home
== END 2019-01-19 10:42 | disposition home or self-care (01) ==
LOC: UCCORT 09:41
DX: M62.830 Muscle spasm of back (principal)
CPT/HCPCS: 99211; G0463